=== PATIENT | male | born 1980 | race Caucasian/White ===

== ENCOUNTER 2021-12-05 16:42 | Emergency (ER) | payer OTHER, SELFPAY ==
[2021-12-05 18:00] VITALS: BP 131/80; PULSE 62; RESP 18; TEMP 36.9; O2SAT 97; BMI 31.8
--- NOTE | 2021-12-05 18:23 | W.ED.BACK ---
HPI - Back Pain/Injury General: Chief Complaint: Back Pain/Injury Stated Complaint: back pain Time Seen by Provider: 12/05/21 18:06 History of Present Illness: Patient is a 41-year-old male comes to the ED with back pain. Pain started several days ago. He has a history of sciatic back pain. He denies any trauma or injury to cause acute pain. Pain starts in the left lower back radiates down to his left leg. Denies any cauda equina symptoms. Rates his pain currently a 8 out of 10. Associated symptoms: Deny abdominal pain, chills, dysuria, fatigue, fever(s), hematuria, nausea or vomiting Review of Systems Const: Denies: fever(s), chills or fatigue Eyes: Denies: change in vision or eye discomfort ENMT: Denies: throat pain, odynophagia, nasal discharge or nasal congestion Card: Denies: chest pain, palpitations, edema, swelling of feet/ankles, dyspnea on exertion or orthopnea Resp: Denies: dyspnea, productive cough or non-productive cough GI: Denies: abdominal pain, nausea, vomiting, diarrhea, constipation or hematochezia : Denies: flank pain, difficulty urinating, dysuria or hematuria Musc: Reports: back pain; Denies: neck pain or extremity swelling Skin/Breast: Denies: rash or new lesions Neuro: Denies: headache(s), numbness in extremities or weakness in extremities [facility] ED PFSH: Medical History (Updated 12/06/21 @ 02:09 by GRACE Tanner) No pertinent family history Surgical History (Updated 12/06/21 @ 02:09 by GRACE Tanner) No pertinent past surgical history Physical Exam Const: COMMON NORMALS: patient oriented x3, healthy appearing and alert GENERAL APPEARANCE: cooperative and comfortable HENMT: COMMON NORMALS: normocephalic HEAD & SCALP: normocephalic MOUTH: Normal oral and palatal mucosa present THROAT: posterior oropharynx normal and uvula midline Neck/C-Spine: COMMON NORMALS: supple GENERAL: Yes normal visual inspection Resp: COMMON NORMALS: normal respiratory effort, No retractions, No use of accessory muscles and clear to auscultation bilaterally AUSCULTATION: clear to auscultation bilaterally Cardio: COMMON NORMALS: regular rate, regular rhythm, S1 normal heart sound present, S2 normal heart sound present, No gallops present (Cardio), No clicks present (Cardio), No murmurs present (Cardio) and Peripheral pulses 2+ throughout RATE: regular rate RHYTHM: regular rhythm HEART SOUNDS: S1 normal heart sound present and S2 normal heart sound present PERIPHERAL PULSES: Peripheral pulses 2+ throughout GI: COMMON NORMALS: Normal to inspection, nondistended, normoactive bowel sounds present, Soft to palpation, non-tender and no masses PALPATION: Yes Soft to palpation : COMMON NORMALS: Yes no CVA tenderness BLADDER/KIDNEY EXAM: Yes no CVA tenderness Back/Pelvis: COMMON NORMALS: no CVA tenderness LUMBAR SPINE/LOWER BACK: Yes pain with ROM and Yes paraspinal muscle tenderness Lumbar paraspinal muscle tenderness: left left lumbar paraspinal muscle tenderness: L4 and L5 Extremity: COMMON NORMALS: normal to inspection Neuro: COMMON NORMALS: patient oriented x3 and moves all extremities SENSORIUM/ORIENTATION: Yes alert Skin: GENERAL SKIN EXAM: dry skin Course Vital Signs: Vital signs: Vital Signs Temperature 98.4 F 12/05/21 18:00 Pulse Rate 62 12/05/21 18:00 Respiratory Rate 18 12/05/21 18:00 Blood Pressure 131/80 12/05/21 18:00 Pulse Oximetry 97 12/05/21 18:00 MDM - Back Pain/Injury Medical Decision Making Patient is a 41-year-old male comes to the ED with left lower back pain that radiates down the left leg. He has a history of sciatica. Denies any trauma or injury to cause pain. Denies cauda equina symptoms. Vitals are stable. Patient was given a dose of Toradol, steroid and muscle relaxer. In the ED. He was diagnosed with lumbar radiculopathy and discharged home with a prescription for Celebrex, a muscle relaxer and steroid. Follow-up with PCP in the next week for reevaluation. Return to ED precautions given. Patient is to agree with plan. Discharge Plan Discharge Patient Disposition: Home Clinical Impression: Lumbar radiculopathy Condition: Stable Prescriptions: New cyclobenzaprine 10 mg tablet 10 mg PO BID PRN (Reason: muscle spasm) Qty: 20 0RF prednisone 20 mg tablet 20 mg PO BID 7 Days Qty: 14 0RF Celebrex 100 mg capsule 100 mg PO BID PRN (Reason: pain) Qty: 30 0RF Discharge Orders: Discharge ED (Routine); Ordered 12/05/21 Ordered By: Maximilian Lazo Discharge Diet: Regular Discharge Activity: Increase activity as tolerated Patient Instructions: Lumbar Radiculopathy (ED) Activity Restrictions/Additional Instructions: Follow-up with medical provider as directed. Take medications as prescribed. Start taking the prescribed prednisone tomorrow, since you received a steroid shot here in the ED. Limit lifting for the next several days to allow for healing. Apply cold pack on lower back multiple times throughout the day and stretch lower back muscles daily. Return to the ER or your medical provider if condition worsens. Please read and understand discharge instructions. Thank you for choosing [facility] for your healthcare needs today. Please realize this is an emergency room and that we are providing you with a medical screening exam and this may not be complete and all inclusive of all the testing and or work up that you may need to determine your ailment or severity of your illness. It is very important that you follow up as instructed or that you return to the Emergency Department should you have concerns or if your condition changes or worsens in any way. Coding Level of Care Code ED Manager Search Engine for Farida Garcia Exam Comprehensive
[2021-12-05] MEDS: ketorolac 60 mg/2 mL INJ IM (18:44)
[2021-12-05] MEDS: orphenadrine 30 mg/mL Inj 2 mL 60 MG IM (18:45)
== END 2021-12-05 18:56 | disposition home or self-care (01) ==
PROVIDERS: Emergency Provider Physician Assistant
DX: M54.16 Radiculopathy, lumbar region (principal)
CPT/HCPCS: 96372; 99284; J1885; J2360; J2930